=== PATIENT | female | born 1935 | race African-American/Black ===

== ENCOUNTER 2017-07-02 19:31 | Inpatient (IN) ==
[2017-07-02] MEDS ORDERED: MORPHINE 2 MG/1 ML SYRINGE IV STA (20:48)
[2017-07-02] MEDS ORDERED: cefTRIAXone 1,000 MG in SODIUM CHLORIDE 0.9% 100 ML IV STA (20:48)
[2017-07-02] MEDS ORDERED: ONDANSETRON 4 MG/2 ML VIAL IV STA (20:48)
[2017-07-02] MEDS ORDERED: FUROSEMIDE 100 MG/10 ML VIAL IV STA (20:55)
[2017-07-02] MEDS ORDERED: methylPREDNISolone SOD SUC 125 MG/2 ML VIAL IV STA (20:55)
[2017-07-02] MEDS ORDERED: ALBUTEROL 2.5 MG/3 ML NEB RESP TX SCH (21:00)
[2017-07-02 21:03] LABS: Basophils % 0.2 % (0.0-0.8); Hematocrit 45.6 VOL% (35.7-47.0); Hemoglobin 15.4 GM/DL (12.0-16.0); Immature Granulocytes % 0.5 %; Immature Granulocytes Absolute 0.09 #; Lymphocytes # 0.7 10*3/uL (1.4-4.0); Lymphocytes % 4.1 % (21.3-54.2); Mean Corpuscular HGB Conc 33.8 GM/DL (32-36); Mean Corpuscular Hemoglobin 32 PG (27-34); Mean Corpuscular Volume 94.2 FL (87-102); Monocytes % 5.5 % (1.7-12.7); NRBC # 0.11 10*3/uL; Neutrophils % 89.7 % (38.7-73.9); Platelet Count 337 T/CUMM (130-400); Red Blood Count 4.84 MC/CUMM (3.8-5.5); Red Cell Distribution Width 15.3 % (9.3-17.3); White Blood Count 17.8 T/CUMM (4-12)
[2017-07-02 21:10] LABS: INR 1.5; PT Patient Result 15.3 SECS
[2017-07-02 21:17] LABS: Albumin 3.3 G/DL (3.4-5.0); Bilirubin,Total 4.4 MG/DL (0.2-1.0); Calcium 9.6 MG/DL (8.5-10.1); Magnesium 2.3 MG/DL (1.8-2.4); Osmolality,Calculated 293.1 MOS/KG (273-304); Potassium 4.1 MMOL/L (3.5-5.1); Troponin I Only 0.358 NG/ML (0.00-0.045)
[2017-07-02] MEDS ORDERED: cefTRIAXone 1,000 MG VIAL ONE (21:22)
[2017-07-02] MEDS ORDERED: FUROSEMIDE 20 MG/2 ML VIAL ONE (21:22)
[2017-07-02] MEDS ORDERED: ONDANSETRON 4 MG/2 ML VIAL ONE (21:22)
[2017-07-02] MEDS ORDERED: FUROSEMIDE 40 MG/4 ML VIAL ONE (21:22)
[2017-07-02] MEDS ORDERED: MORPHINE 2 MG/1 ML SYRINGE ONE (21:22)
[2017-07-02] MEDS ORDERED: methylPREDNISolone SOD SUC 125 MG/2 ML VIAL ONE (21:23)
[2017-07-02 21:39] LABS: Lymphocytes 4 % (20-55); Nucleated Red Blood Cells 1 (0-5); Platelet Estimate Normal; Segmented Neutrophils 93 % (50-85); Total Cells Counted 100
[2017-07-02 22:01] LABS: Apearance,Urine Slightly Hazy (Clear); Bacteria,Urine Occasional /HPF (Few); Bilirubin,Urine Negative (Negative); Blood, Urine Small mg/dL (Negative); Glucose,Urine (UA) Negative (Negative); Hyaline Casts,Urine 27 /LPF (0-3); Ketones,Urine Negative (Negative); Mucus,Urine Occasional /LPF (Occasional); Nitrite,Urine Negative (Negative); Protein,Urine 100 MG/DL; RBC,Urine 3 /HPF (0-4); Squamous Epithelial Cell,Urine Occasional /HPF (0-10); Urine Color Amber (Yellow); Urine Specific Gravity 1.014 (1.001-1.035); WBC,Urine 37 /HPF (0-6)
[2017-07-02] MEDS ORDERED: ENOXAPARIN 100 MG/ML SYRINGE SUBCUT STA (22:10)
[2017-07-02] MEDS ORDERED: ALBUTEROL 2.5 MG/3 ML NEB RESP TX PRN (23:07)
[2017-07-02] MEDS ORDERED: DEXTROSE 50% 25 GM/50 ML VIAL IV PRN (23:21)
[2017-07-02] MEDS ORDERED: GLUCAGON 1 MG VIAL IM PRN (23:21)
[2017-07-02] MEDS ORDERED: ACETAMINOPHEN 325 MG TABLET PO PRN (23:21)
[2017-07-02] MEDS ORDERED: ONDANSETRON 4 MG/2 ML VIAL IV PRN (23:21)
[2017-07-02] MEDS ORDERED: hydrALAZINE 20 MG/1 ML VIAL IV PRN (23:26)
[2017-07-02] MEDS ORDERED: AZITHROMYCIN INJ 500 MG in SODIUM CHLORIDE 0.9% 250 ML IV SCH (23:30)
[2017-07-02] MEDS ORDERED: cefTRIAXone 1,000 MG in SODIUM CHLORIDE 0.9% 100 ML IV SCH (23:30)
[2017-07-03] MEDS: ALBUTEROL/IPRATROPIUM 3 ML NEB RESP TX SCH ×4 (00:48→19:06)
[2017-07-03] MEDS: methylPREDNISolone SOD SUC 40 MG/1 ML VIAL IV SCH ×4 (00:49→23:45)
[2017-07-03] MEDS: LEVOFLOXACIN INJ 750 MG in PREMIX 1 EACH IV SCH (00:51)
[2017-07-03] MEDS: POTASSIUM CHLORIDE 20 MEQ TABLET PO SCH ×3 (00:52→20:51)
[2017-07-03] MEDS: ATORVASTATIN 40 MG TABLET PO SCH ×2 (00:52→20:51)
[2017-07-03] MEDS: SODIUM CHLORIDE 0.9% 1,000 ML IV SCH ×2 (00:52→23:47)
[2017-07-03] MEDS: DILTIAZEM INJ 100 MG in SODIUM CHLORIDE 0.9% 100 ML IV SCH ×2 (00:56→23:47)
[2017-07-03 05:22] LABS: Hematocrit 39.3 VOL% (35.7-47.0); Hemoglobin 13.5 GM/DL (12.0-16.0); Immature Granulocytes % 0.8 %; Lymphocytes # 0.3 10*3/uL (1.4-4.0); Lymphocytes % 2.9 % (21.3-54.2); Mean Corpuscular HGB Conc 34.4 GM/DL (32-36); Mean Corpuscular Hemoglobin 32 PG (27-34); Mean Corpuscular Volume 92.3 FL (87-102); Mean Platelet Volume 11.2 FL (9.6-12.0); Monocytes # 0.2 10*3/uL (0.11-0.8); Monocytes % 1.7 % (1.7-12.7); Neutrophils # 11.3 10*3/uL (1.4-7.4); Neutrophils % 94.6 % (38.7-73.9); Platelet Count 272 T/CUMM (130-400); Red Blood Count 4.26 MC/CUMM (3.8-5.5); Red Cell Distribution Width 15.2 % (9.3-17.3); White Blood Count 11.9 T/CUMM (4-12)
[2017-07-03 05:47] LABS: Albumin 2.6 G/DL (3.4-5.0); Bilirubin,Total 3.1 MG/DL (0.2-1.0); Calcium 9.2 MG/DL (8.5-10.1); Osmolality,Calculated 300.1 MOS/KG (273-304); Potassium 4.5 MMOL/L (3.5-5.1); Total Protein 5.8 G/DL (6.4-8.3)
[2017-07-03 05:59] LABS: Risk Ratio 7.93; Thyroid Stimulating Hormone 0.029 uIU/ml (0.358-3.74); VLDL CHOLESTEROL 16.8 MG/DL
[2017-07-03] MEDS: LEVOTHYROXINE 150 MCG TABLET PO SCH (06:10)
[2017-07-03] MEDS ORDERED: FUROSEMIDE 20 MG/2 ML VIAL IV SCH (08:00)
[2017-07-03] MEDS ORDERED: FUROSEMIDE 20 MG/2 ML VIAL IM SCH (08:00)
[2017-07-03 08:01] LABS: Hypochromasia 1+; Lymphocytes 3 % (20-55); Microcytosis Slight; Segmented Neutrophils 95 % (50-85); Total Cells Counted 100
[2017-07-03 08:02] LABS: Platelet Estimate Normal; Polychromasia Slight
[2017-07-03 08:42] LABS: Hepatitis A Ab IgM Quant 0.14 Index; Hepatitis A Ab IgM Result Negative (Negative); Hepatitis B Core IgM Result Negative (Negative); Hepatitis B Surface Ag Quant < 0.10 Index; Hepatitis B Surface Ag Result Negative (Negative); Hepatitis C Virus Ab Quant 0.02 Index; Hepatitis C Virus Ab Result Negative (Negative)
[2017-07-03] MEDS: RIVAROXABAN 15 MG TABLET PO SCH (08:56)
[2017-07-03] MEDS: PANTOPRAZOLE 40 MG TABLET PO SCH (08:56)
[2017-07-03] MEDS: DIGOXIN 0.125 MG TABLET PO SCH (08:56)
[2017-07-03] MEDS: INSULIN LISPRO 100 UNIT/ML SUBCUT SCH ×4 (08:57→20:51)
[2017-07-03] MEDS ORDERED: METOPROLOL SUCCINATE XL 50 MG TABLET PO SCH (09:00)
[2017-07-03] MEDS ORDERED: LOSARTAN 50 MG TABLET PO SCH (09:00)
[2017-07-03] MEDS: FUROSEMIDE 20 MG/2 ML VIAL IV SCH ×2 (09:05→15:48)
[2017-07-03] MEDS: BUDESONIDE/FORMOTEROL 160-4.5 INHALER 6 GM INH SCH (09:09)
[2017-07-03] MEDS ORDERED: DILTIAZEM CD 180 MG CAPSULE PO SCH (11:30)
[2017-07-03] MEDS ORDERED: metOLazone 5 MG TABLET PO SCH (16:00)
[2017-07-03] MEDS: FUROSEMIDE 40 MG/4 ML VIAL IV SCH (16:00)
[2017-07-03] MEDS: CARVEDILOL 25 MG TABLET PO SCH (20:51)
[2017-07-03] MEDS: MAGNESIUM OXIDE 400 MG TABLET PO SCH (20:51)
[2017-07-04 04:31] LABS: Basophils % 0.1 % (0.0-0.8); Hematocrit 36.3 VOL% (35.7-47.0); Hemoglobin 12.6 GM/DL (12.0-16.0); Immature Granulocytes % 0.7 %; Immature Granulocytes Absolute 0.11 #; Lymphocytes # 0.6 10*3/uL (1.4-4.0); Lymphocytes % 3.9 % (21.3-54.2); Mean Corpuscular HGB Conc 34.7 GM/DL (32-36); Mean Corpuscular Hemoglobin 32 PG (27-34); Mean Corpuscular Volume 91.2 FL (87-102); Mean Platelet Volume 11.1 FL (9.6-12.0); Monocytes # 0.5 10*3/uL (0.11-0.8); Monocytes % 3.4 % (1.7-12.7); NRBC # 0.14 10*3/uL; Neutrophils # 13.7 10*3/uL (1.4-7.4); Neutrophils % 91.9 % (38.7-73.9); Platelet Count 246 T/CUMM (130-400); Red Blood Count 3.98 MC/CUMM (3.8-5.5); Red Cell Distribution Width 14.9 % (9.3-17.3)
[2017-07-04 05:19] LABS: Osmolality,Calculated 287.2 MOS/KG (273-304); Potassium 3.9 MMOL/L (3.5-5.1)
[2017-07-04] MEDS: LEVOTHYROXINE 150 MCG TABLET PO SCH (05:37)
[2017-07-04 07:40] LABS: Hypochromasia 1+; Lymphocytes 8 % (20-55); Platelet Estimate Adequate; Segmented Neutrophils 86 % (50-85); Total Cells Counted 100
[2017-07-04] MEDS: ALBUTEROL/IPRATROPIUM 3 ML NEB RESP TX SCH ×4 (08:02→20:02)
[2017-07-04] MEDS: BUDESONIDE/FORMOTEROL 160-4.5 INHALER 6 GM INH SCH (10:08)
[2017-07-04] MEDS: MAGNESIUM OXIDE 400 MG TABLET PO SCH ×2 (10:09→20:07)
[2017-07-04] MEDS: DIGOXIN 0.125 MG TABLET PO SCH (10:09)
[2017-07-04] MEDS: methylPREDNISolone SOD SUC 40 MG/1 ML VIAL IV SCH ×3 (10:10→22:58)
[2017-07-04] MEDS: FUROSEMIDE 40 MG/4 ML VIAL IV SCH (10:10)
[2017-07-04] MEDS: CARVEDILOL 25 MG TABLET PO SCH ×2 (10:10→20:07)
[2017-07-04] MEDS: PANTOPRAZOLE 40 MG TABLET PO SCH (10:10)
[2017-07-04] MEDS: RIVAROXABAN 15 MG TABLET PO SCH (10:10)
[2017-07-04] MEDS: POTASSIUM CHLORIDE 20 MEQ TABLET PO SCH ×2 (10:10→20:07)
[2017-07-04] MEDS: INSULIN LISPRO 100 UNIT/ML SUBCUT SCH ×4 (10:11→20:07)
[2017-07-04 11:45] LABS: Hepatitis A Ab IgM Quant 0.14 Index; Hepatitis A Ab IgM Result Negative (Negative); Hepatitis B Surface Ag Quant < 0.10 Index
[2017-07-04 11:46] LABS: Hepatitis B Core IgM Quant 0.09 Index; Hepatitis B Core IgM Result Negative (Negative); Hepatitis B Surface Ag Result Negative (Negative); Hepatitis C Virus Ab Quant 0.03 Index; Hepatitis C Virus Ab Result Negative (Negative)
[2017-07-04] MEDS: FUROSEMIDE 40 MG TABLET PO SCH (16:19)
[2017-07-04] MEDS: ATORVASTATIN 40 MG TABLET PO SCH (20:07)
[2017-07-04] MEDS: LEVOFLOXACIN INJ 750 MG in PREMIX 1 EACH IV SCH (22:59)
[2017-07-05] MEDS: ALBUTEROL/IPRATROPIUM 3 ML NEB RESP TX SCH ×4 (00:41→20:18)
[2017-07-05] MEDS: SODIUM CHLORIDE 0.9% 1,000 ML IV SCH (04:00)
[2017-07-05] MEDS: LEVOTHYROXINE 75 MCG TABLET PO SCH (05:46)
[2017-07-05 05:51] LABS: Osmolality,Calculated 290.7 MOS/KG (273-304)
[2017-07-05 06:09] LABS: Basophils % 0.1 % (0.0-0.8); Hematocrit 38.3 VOL% (35.7-47.0); Hemoglobin 13.6 GM/DL (12.0-16.0); Immature Granulocytes % 0.8 %; Immature Granulocytes Absolute 0.12 #; Lymphocytes # 0.5 10*3/uL (1.4-4.0); Lymphocytes % 3.1 % (21.3-54.2); Mean Corpuscular HGB Conc 35.5 GM/DL (32-36); Mean Corpuscular Hemoglobin 32 PG (27-34); Mean Corpuscular Volume 89.1 FL (87-102); Mean Platelet Volume 11.2 FL (9.6-12.0); Monocytes # 0.4 10*3/uL (0.11-0.8); Monocytes % 2.6 % (1.7-12.7); NRBC # 0.06 10*3/uL; Neutrophils # 14.7 10*3/uL (1.4-7.4); Neutrophils % 93.4 % (38.7-73.9); Platelet Count 279 T/CUMM (130-400); Red Cell Distribution Width 14.7 % (9.3-17.3); White Blood Count 15.7 T/CUMM (4-12)
[2017-07-05 08:07] LABS: Band Neutrophils 2 % (0-10); Lymphocytes 2 % (20-55); Macrocytosis 1+; Segmented Neutrophils 93 % (50-85); Total Cells Counted 100
[2017-07-05 08:08] LABS: Hypochromasia 2+; Platelet Estimate Adequate; Target Cells Slight
[2017-07-05] MEDS: methylPREDNISolone SOD SUC 40 MG/1 ML VIAL IV SCH ×3 (09:01→23:59)
[2017-07-05] MEDS: FUROSEMIDE 40 MG TABLET PO SCH ×2 (09:01→15:08)
[2017-07-05] MEDS: INSULIN LISPRO 100 UNIT/ML SUBCUT SCH ×4 (09:01→21:58)
[2017-07-05] MEDS: CARVEDILOL 25 MG TABLET PO SCH ×2 (09:01→21:25)
[2017-07-05] MEDS: MAGNESIUM OXIDE 400 MG TABLET PO SCH ×2 (09:02→21:26)
[2017-07-05] MEDS: RIVAROXABAN 15 MG TABLET PO SCH (09:02)
[2017-07-05] MEDS: PANTOPRAZOLE 40 MG TABLET PO SCH (09:02)
[2017-07-05] MEDS: BUDESONIDE/FORMOTEROL 160-4.5 INHALER 6 GM INH SCH (09:02)
[2017-07-05] MEDS: POTASSIUM CHLORIDE 20 MEQ TABLET PO SCH ×2 (09:02→21:26)
[2017-07-05] MEDS: DIGOXIN 0.125 MG TABLET PO SCH (09:02)
[2017-07-05] MEDS: NYSTATIN 500,000 UNIT/5 ML UDCUP SWISH/SWAL SCH ×2 (17:38→21:33)
[2017-07-05] MEDS: ATORVASTATIN 40 MG TABLET PO SCH (21:26)
[2017-07-06] MEDS: SODIUM CHLORIDE 0.9% 1,000 ML IV SCH ×2 (00:39→08:18)
[2017-07-06] MEDS: ALBUTEROL/IPRATROPIUM 3 ML NEB RESP TX SCH ×4 (00:47→21:09)
[2017-07-06] MEDS ORDERED: DIAZEPAM 5 MG TABLET PO ONE ×2 (06:00→09:00)
[2017-07-06] MEDS ORDERED: diphenhydrAMINE CAP 25 MG CAPSULE PO ONE ×2 (06:00→09:00)
[2017-07-06 06:04] LABS: Basophils % 0.1 % (0.0-0.8); Hematocrit 40.8 VOL% (35.7-47.0); Hemoglobin 14.3 GM/DL (12.0-16.0); Immature Granulocytes Absolute 0.13 #; Lymphocytes # 0.3 10*3/uL (1.4-4.0); Lymphocytes % 2.4 % (21.3-54.2); Mean Corpuscular Hemoglobin 31 PG (27-34); Mean Corpuscular Volume 89.7 FL (87-102); Mean Platelet Volume 10.8 FL (9.6-12.0); Monocytes # 0.4 10*3/uL (0.11-0.8); Monocytes % 3.1 % (1.7-12.7); NRBC # 0.02 10*3/uL; Neutrophils # 12.8 10*3/uL (1.4-7.4); Neutrophils % 93.4 % (38.7-73.9); Platelet Count 298 T/CUMM (130-400); Red Blood Count 4.55 MC/CUMM (3.8-5.5); Red Cell Distribution Width 14.7 % (9.3-17.3); White Blood Count 13.7 T/CUMM (4-12)
[2017-07-06] MEDS: LEVOTHYROXINE 75 MCG TABLET PO SCH ×2 (06:15→08:09)
[2017-07-06 06:37] LABS: Lymphocytes 3 % (20-55); Platelet Estimate Adequate; Segmented Neutrophils 96 % (50-85); Total Cells Counted 100
[2017-07-06 06:38] LABS: Giant Platelets Few; Hypochromasia 1+; Ovalocytes Slight
[2017-07-06 06:39] LABS: Macrocytosis Slight
[2017-07-06 07:00] LABS: Calcium 9.2 MG/DL (8.5-10.1); Osmolality,Calculated 290.4 MOS/KG (273-304); Potassium 3.7 MMOL/L (3.5-5.1)
[2017-07-06 07:06] LABS: Albumin 2.6 G/DL (3.4-5.0); Bilirubin,Direct 0.81 MG/DL (0.0-0.20); Bilirubin,Indirect 1.3 MG/DL (0.0-1.0); Bilirubin,Total 2.1 MG/DL (0.2-1.0); Total Protein 5.3 G/DL (6.4-8.3)
[2017-07-06] MEDS ORDERED: diphenhydrAMINE CAP 50 MG CAPSULE ONE (07:37)
[2017-07-06] MEDS ORDERED: DIAZEPAM 5 MG TABLET ONE (07:37)
[2017-07-06] MEDS: methylPREDNISolone SOD SUC 40 MG/1 ML VIAL IV SCH ×3 (08:08→23:30)
[2017-07-06] MEDS: CARVEDILOL 25 MG TABLET PO SCH ×2 (08:09→21:02)
[2017-07-06] MEDS: DIGOXIN 0.125 MG TABLET PO SCH (08:09)
[2017-07-06] MEDS: BUDESONIDE/FORMOTEROL 160-4.5 INHALER 6 GM INH SCH (08:17)
[2017-07-06] MEDS: INSULIN LISPRO 100 UNIT/ML SUBCUT SCH ×4 (08:23→21:47)
[2017-07-06] MEDS ORDERED: HEPARIN/NACL 0.9% 2 UNITS/ML 2,000 ML IV ONE (09:53)
[2017-07-06] MEDS ORDERED: LIDOCAINE 1% 20 ML VIAL ONE (09:53)
[2017-07-06] MEDS ORDERED: fentaNYL 100 MCG/2 ML VIAL ONE (10:05)
[2017-07-06] MEDS ORDERED: MIDAZOLAM 2 MG/2 ML VIAL ONE (10:05)
[2017-07-06] MEDS: FUROSEMIDE 40 MG TABLET PO SCH ×2 (15:39)
[2017-07-06] MEDS: NYSTATIN 500,000 UNIT/5 ML UDCUP SWISH/SWAL SCH ×3 (15:40→21:47)
[2017-07-06] MEDS: POTASSIUM CHLORIDE 20 MEQ TABLET PO SCH ×2 (15:40→21:02)
[2017-07-06] MEDS: RIVAROXABAN 15 MG TABLET PO SCH (15:41)
[2017-07-06] MEDS: PANTOPRAZOLE 40 MG TABLET PO SCH (15:41)
[2017-07-06] MEDS: MAGNESIUM OXIDE 400 MG TABLET PO SCH ×2 (15:41→21:02)
[2017-07-06] MEDS: ATORVASTATIN 40 MG TABLET PO SCH (21:02)
[2017-07-07] MEDS: LEVOFLOXACIN INJ 750 MG in PREMIX 1 EACH IV SCH (00:43)
[2017-07-07] MEDS: ALBUTEROL/IPRATROPIUM 3 ML NEB RESP TX SCH ×3 (02:26→14:14)
[2017-07-07 04:43] LABS: Basophils % 0.1 % (0.0-0.8); Hematocrit 40.4 VOL% (35.7-47.0); Hemoglobin 13.7 GM/DL (12.0-16.0); Immature Granulocytes % 0.8 %; Lymphocytes # 0.2 10*3/uL (1.4-4.0); Lymphocytes % 1.5 % (21.3-54.2); Mean Corpuscular HGB Conc 33.9 GM/DL (32-36); Mean Corpuscular Hemoglobin 31 PG (27-34); Mean Corpuscular Volume 91.4 FL (87-102); Mean Platelet Volume 10.8 FL (9.6-12.0); Monocytes # 0.6 10*3/uL (0.11-0.8); Monocytes % 4.6 % (1.7-12.7); NRBC # 0.02 10*3/uL; Neutrophils # 11.4 10*3/uL (1.4-7.4); Platelet Count 259 T/CUMM (130-400); Red Blood Count 4.42 MC/CUMM (3.8-5.5); Red Cell Distribution Width 14.9 % (9.3-17.3); White Blood Count 12.3 T/CUMM (4-12)
[2017-07-07 05:16] LABS: Calcium 8.7 MG/DL (8.5-10.1); Potassium 3.7 MMOL/L (3.5-5.1)
[2017-07-07 05:20] LABS: Giant Platelets Few; Hypochromasia 1+; Lymphocytes 1 % (20-55); Macrocytosis Slight; Ovalocytes Slight; Platelet Estimate Adequate; Segmented Neutrophils 94 % (50-85); Total Cells Counted 100
[2017-07-07] MEDS: MAGNESIUM OXIDE 400 MG TABLET PO SCH (09:36)
[2017-07-07] MEDS: NYSTATIN 500,000 UNIT/5 ML UDCUP SWISH/SWAL SCH ×2 (09:36→13:48)
[2017-07-07] MEDS: POTASSIUM CHLORIDE 20 MEQ TABLET PO SCH (09:37)
[2017-07-07] MEDS: DIGOXIN 0.125 MG TABLET PO SCH (09:37)
[2017-07-07] MEDS: RIVAROXABAN 15 MG TABLET PO SCH (09:37)
[2017-07-07] MEDS: CARVEDILOL 25 MG TABLET PO SCH (09:37)
[2017-07-07] MEDS: INSULIN LISPRO 100 UNIT/ML SUBCUT SCH ×2 (09:38→13:04)
[2017-07-07] MEDS: FUROSEMIDE 40 MG TABLET PO SCH (09:38)
[2017-07-07] MEDS: PANTOPRAZOLE 40 MG TABLET PO SCH (09:38)
[2017-07-07] MEDS: methylPREDNISolone SOD SUC 40 MG/1 ML VIAL IV SCH (09:39)
[2017-07-07] MEDS: LEVOTHYROXINE 75 MCG TABLET PO SCH (09:39)
[2017-07-07] MEDS: BUDESONIDE/FORMOTEROL 160-4.5 INHALER 6 GM INH SCH (11:08)
[2017-07-07 13:00] VITALS: BP 108/57
[2017-07-07 14:06] LABS: Mitochondrial Antibody (M2) <0.1 U
== END 2017-07-07 17:17 | disposition home or self-care (01) | DRG 190 ==
LOC: N.ED 19:31 → N.EDINP 22:53 → N.TELEN 23:23
PROVIDERS: ADMIT Internal Medicine; ATTEND Internal Medicine
PROC: CLCCHCL (ICD-10-PCS; 2017-07-06 10:15)

== ENCOUNTER 2017-07-14 18:55 | Inpatient (IN) ==
[2017-07-14 20:24] LABS: VBG Base Excess 7.9 MEQ/L (0-4); VBG HCO3 34.2 MEQ/L (24-28); VBG PCO2 54.3 MMHG (41-51); VBG PH 7.417; VBG PO2 141.5 MMHG (17-40)
[2017-07-14 20:27] LABS: Basophils % 0.2 % (0.0-0.8); Eosinophils # 0.2 10*3/uL (0.0-0.87); Eosinophils % 1.7 % (0.00-10.9); Hematocrit 39.2 VOL% (35.7-47.0); Hemoglobin 12.9 GM/DL (12.0-16.0); Immature Granulocytes % 0.6 %; Immature Granulocytes Absolute 0.06 #; Lymphocytes # 0.7 10*3/uL (1.4-4.0); Lymphocytes % 6.5 % (21.3-54.2); Mean Corpuscular HGB Conc 32.9 GM/DL (32-36); Mean Corpuscular Hemoglobin 32 PG (27-34); Mean Corpuscular Volume 96.6 FL (87-102); Mean Platelet Volume 11.5 FL (9.6-12.0); Monocytes % 9.4 % (1.7-12.7); Neutrophils # 8.7 10*3/uL (1.4-7.4); Neutrophils % 81.6 % (38.7-73.9); Platelet Count 187 T/CUMM (130-400); Red Blood Count 4.06 MC/CUMM (3.8-5.5); Red Cell Distribution Width 14.6 % (9.3-17.3); White Blood Count 10.7 T/CUMM (4-12)
[2017-07-14 20:32] LABS: INR 1.4; PT Patient Result 14.8 SECS; Partial Thromboplastin Time 33.8 SECS (0-40)
[2017-07-14 20:35] LABS: Albumin 2.5 G/DL (3.4-5.0); Bilirubin,Total 1.6 MG/DL (0.2-1.0); Calcium 7.9 MG/DL (8.5-10.1); Magnesium 1.5 MG/DL (1.8-2.4); Osmolality,Calculated 276.4 MOS/KG (273-304); Potassium 2.7 MMOL/L (3.5-5.1); Total Protein 6.3 G/DL (6.4-8.3); Troponin I Only 0.139 NG/ML (0.00-0.045)
[2017-07-14] MEDS ORDERED: ALBUTEROL/IPRATROPIUM 3 ML NEB RESP TX STA (21:56)
[2017-07-14] MEDS ORDERED: methylPREDNISolone SOD SUC 125 MG/2 ML VIAL IV STA (21:56)
[2017-07-14] MEDS ORDERED: methylPREDNISolone SOD SUC 125 MG/2 ML VIAL ONE (22:56)
[2017-07-15] MEDS ORDERED: ALBUTEROL/IPRATROPIUM 3 ML NEB RESP TX PRN (00:36)
[2017-07-15] MEDS ORDERED: POTASSIUM CHLORIDE RIDER 20 MEQ in PREMIX 1 EACH IV PRN (00:43)
[2017-07-15] MEDS ORDERED: MAGNESIUM SULF RIDER 2 GM in PREMIX 1 EACH IV ONE (00:44)
[2017-07-15] MEDS ORDERED: ACETAMINOPHEN 325 MG TABLET PO PRN (00:45)
[2017-07-15] MEDS ORDERED: GLUCAGON 1 MG VIAL IM PRN (00:45)
[2017-07-15] MEDS ORDERED: ONDANSETRON 4 MG/2 ML VIAL IV PRN (00:45)
[2017-07-15] MEDS ORDERED: DEXTROSE 50% 25 GM/50 ML VIAL IV PRN (00:45)
[2017-07-15] MEDS: ATORVASTATIN 40 MG TABLET PO SCH ×2 (03:26→20:39)
[2017-07-15] MEDS ORDERED: LEVOFLOXACIN INJ 100 ML IV ONE (03:28)
[2017-07-15] MEDS ORDERED: methylPREDNISolone SOD SUC 40 MG/1 ML VIAL ONE ×3 (03:28→14:21)
[2017-07-15] MEDS ORDERED: MAGNESIUM SULF RIDER 50 ML IV ONE (03:28)
[2017-07-15] MEDS: ALBUTEROL/IPRATROPIUM 3 ML NEB RESP TX SCH ×4 (03:30→19:26)
[2017-07-15] MEDS: methylPREDNISolone SOD SUC 40 MG/1 ML VIAL IV SCH ×5 (04:00→18:05)
[2017-07-15 05:33] LABS: Albumin 2.4 G/DL (3.4-5.0); Bilirubin,Total 1.5 MG/DL (0.2-1.0); Calcium 8.1 MG/DL (8.5-10.1); Osmolality,Calculated 284.1 MOS/KG (273-304); Potassium 3.2 MMOL/L (3.5-5.1); Total Protein 5.9 G/DL (6.4-8.3)
[2017-07-15 05:40] LABS: Basophils % 0.1 % (0.0-0.8); Hematocrit 38.9 VOL% (35.7-47.0); Hemoglobin 12.8 GM/DL (12.0-16.0); Immature Granulocytes % 0.5 %; Immature Granulocytes Absolute 0.04 #; Lymphocytes # 0.3 10*3/uL (1.4-4.0); Lymphocytes % 4.5 % (21.3-54.2); Mean Corpuscular HGB Conc 32.9 GM/DL (32-36); Mean Corpuscular Hemoglobin 32 PG (27-34); Mean Platelet Volume 11.7 FL (9.6-12.0); Monocytes # 0.1 10*3/uL (0.11-0.8); Monocytes % 1.7 % (1.7-12.7); Neutrophils # 7.1 10*3/uL (1.4-7.4); Neutrophils % 93.2 % (38.7-73.9); Platelet Count 181 T/CUMM (130-400); Red Blood Count 4.05 MC/CUMM (3.8-5.5); Red Cell Distribution Width 14.6 % (9.3-17.3); White Blood Count 7.6 T/CUMM (4-12)
[2017-07-15 06:02] LABS: Lymphocytes 2 % (20-55); Platelet Estimate Normal; Segmented Neutrophils 96 % (50-85); Total Cells Counted 100
[2017-07-15 06:03] LABS: Giant Platelets Few; Hypochromasia 1+; Microcytosis Slight
[2017-07-15] MEDS: LEVOFLOXACIN INJ 500 MG in PREMIX 1 EACH IV SCH (06:05)
[2017-07-15] MEDS: CARVEDILOL 25 MG TABLET PO SCH ×3 (06:08→20:39)
[2017-07-15] MEDS ORDERED: FUROSEMIDE 40 MG/4 ML VIAL ONE (07:54)
[2017-07-15] MEDS: FUROSEMIDE 40 MG/4 ML VIAL IV SCH ×2 (08:03→17:46)
[2017-07-15] MEDS ORDERED: INSULIN LISPRO 100 UNIT/ML SUBCUT ONE (10:40)
[2017-07-15] MEDS: INSULIN LISPRO 100 UNIT/ML SUBCUT SCH ×4 (10:42→20:39)
[2017-07-15] MEDS ORDERED: DIGOXIN 0.125 MG TABLET ONE (11:16)
[2017-07-15] MEDS: DIGOXIN 0.125 MG TABLET PO SCH (11:21)
[2017-07-15] MEDS ORDERED: PANTOPRAZOLE 40 MG TABLET PO ONE (13:54)
[2017-07-15] MEDS: PANTOPRAZOLE 40 MG TABLET PO SCH (14:18)
[2017-07-15] MEDS: BUDESONIDE/FORMOTEROL 160-4.5 INHALER 6 GM INH SCH (16:07)
[2017-07-15] MEDS: LEVOTHYROXINE 75 MCG TABLET PO SCH (16:07)
[2017-07-15] MEDS ORDERED: INFLUENZA VIRUS VACCINE 0.5 ML SYRINGE IM ONE (16:08)
[2017-07-16] MEDS: methylPREDNISolone SOD SUC 40 MG/1 ML VIAL IV SCH ×4 (01:50→19:02)
[2017-07-16] MEDS: LEVOFLOXACIN INJ 500 MG in PREMIX 1 EACH IV SCH (01:51)
[2017-07-16] MEDS: LEVOTHYROXINE 75 MCG TABLET PO SCH (06:15)
[2017-07-16] MEDS: ALBUTEROL/IPRATROPIUM 3 ML NEB RESP TX SCH ×4 (06:28→19:26)
[2017-07-16] MEDS: FUROSEMIDE 40 MG/4 ML VIAL IV SCH ×2 (09:18→16:06)
[2017-07-16] MEDS: INSULIN LISPRO 100 UNIT/ML SUBCUT SCH ×4 (09:18→22:11)
[2017-07-16] MEDS: INSULIN ASPART PROTAMINE/ASPART 70/30 100 UNIT/ML SUBCUT SCH ×2 (09:19→22:11)
[2017-07-16] MEDS: DIGOXIN 0.125 MG TABLET PO SCH (09:19)
[2017-07-16] MEDS: CARVEDILOL 25 MG TABLET PO SCH ×2 (09:19→22:10)
[2017-07-16] MEDS: PANTOPRAZOLE 40 MG TABLET PO SCH (09:19)
[2017-07-16] MEDS: BUDESONIDE/FORMOTEROL 160-4.5 INHALER 6 GM INH SCH (09:20)
[2017-07-16] MEDS: PIPERACILLIN/TAZOBACTAM 3,375 MG in SODIUM CHLORIDE 0.9% 100 ML IV SCH (17:02)
[2017-07-16] MEDS: ATORVASTATIN 40 MG TABLET PO SCH (22:11)
[2017-07-17] MEDS: methylPREDNISolone SOD SUC 40 MG/1 ML VIAL IV SCH ×4 (01:27→18:08)
[2017-07-17] MEDS: PIPERACILLIN/TAZOBACTAM 3,375 MG in SODIUM CHLORIDE 0.9% 100 ML IV SCH ×3 (01:28→17:25)
[2017-07-17] MEDS: ALBUTEROL/IPRATROPIUM 3 ML NEB RESP TX SCH ×4 (01:30→19:18)
[2017-07-17 04:00] LABS: Calcium 8.6 MG/DL (8.5-10.1); Osmolality,Calculated 284.5 MOS/KG (273-304)
[2017-07-17 04:03] LABS: Basophils % 0.1 % (0.0-0.8); Hematocrit 38.5 VOL% (35.7-47.0); Hemoglobin 12.8 GM/DL (12.0-16.0); Immature Granulocytes % 0.8 %; Immature Granulocytes Absolute 0.11 #; Lymphocytes # 0.6 10*3/uL (1.4-4.0); Lymphocytes % 4.1 % (21.3-54.2); Mean Corpuscular HGB Conc 33.2 GM/DL (32-36); Mean Corpuscular Hemoglobin 32 PG (27-34); Mean Corpuscular Volume 95.8 FL (87-102); Mean Platelet Volume 11.1 FL (9.6-12.0); Monocytes # 0.4 10*3/uL (0.11-0.8); Monocytes % 2.6 % (1.7-12.7); Neutrophils # 13.3 10*3/uL (1.4-7.4); Neutrophils % 92.4 % (38.7-73.9); Platelet Count 174 T/CUMM (130-400); Red Blood Count 4.02 MC/CUMM (3.8-5.5); Red Cell Distribution Width 13.9 % (9.3-17.3); White Blood Count 14.3 T/CUMM (4-12)
[2017-07-17 05:11] LABS: Giant Platelets Few; Hypochromasia 1+; Lymphocytes 4 % (20-55); Microcytosis Slight; Ovalocytes Slight; Platelet Estimate Normal; Segmented Neutrophils 94 % (50-85); Total Cells Counted 100
[2017-07-17] MEDS: LEVOTHYROXINE 75 MCG TABLET PO SCH (05:47)
[2017-07-17] MEDS: POTASSIUM CHLORIDE 20 MEQ TABLET PO PRN (06:26)
[2017-07-17] MEDS: CARVEDILOL 25 MG TABLET PO SCH ×2 (08:58→21:07)
[2017-07-17] MEDS: INSULIN ASPART PROTAMINE/ASPART 70/30 100 UNIT/ML SUBCUT SCH ×2 (08:58→21:08)
[2017-07-17] MEDS: INSULIN LISPRO 100 UNIT/ML SUBCUT SCH ×4 (08:58→20:35)
[2017-07-17] MEDS: BUDESONIDE/FORMOTEROL 160-4.5 INHALER 6 GM INH SCH (08:58)
[2017-07-17] MEDS: PANTOPRAZOLE 40 MG TABLET PO SCH (08:58)
[2017-07-17] MEDS: FUROSEMIDE 40 MG TABLET PO SCH ×2 (08:58→17:25)
[2017-07-17] MEDS: RIVAROXABAN 15 MG TABLET PO SCH (08:58)
[2017-07-17] MEDS: DIGOXIN 0.125 MG TABLET PO SCH (08:59)
[2017-07-17] MEDS ORDERED: POTASSIUM CHLORIDE INJ 30 MEQ in SODIUM CHLORIDE 0.9% 500 ML IV ONE (16:30)
[2017-07-17] MEDS: ATORVASTATIN 40 MG TABLET PO SCH (21:07)
[2017-07-18] MEDS: ALBUTEROL/IPRATROPIUM 3 ML NEB RESP TX SCH ×4 (00:40→21:14)
[2017-07-18] MEDS: PIPERACILLIN/TAZOBACTAM 3,375 MG in SODIUM CHLORIDE 0.9% 100 ML IV SCH ×3 (02:12→16:40)
[2017-07-18] MEDS: methylPREDNISolone SOD SUC 40 MG/1 ML VIAL IV SCH ×4 (02:17→20:23)
[2017-07-18 03:03] LABS: Basophils % 0.1 % (0.0-0.8); Hematocrit 38.3 VOL% (35.7-47.0); Hemoglobin 12.8 GM/DL (12.0-16.0); Immature Granulocytes % 0.7 %; Immature Granulocytes Absolute 0.11 #; Lymphocytes # 0.7 10*3/uL (1.4-4.0); Lymphocytes % 3.9 % (21.3-54.2); Mean Corpuscular HGB Conc 33.4 GM/DL (32-36); Mean Corpuscular Hemoglobin 32 PG (27-34); Mean Platelet Volume 11.4 FL (9.6-12.0); Monocytes # 0.4 10*3/uL (0.11-0.8); Monocytes % 2.3 % (1.7-12.7); Neutrophils # 15.6 10*3/uL (1.4-7.4); Platelet Count 171 T/CUMM (130-400); Red Blood Count 3.99 MC/CUMM (3.8-5.5); Red Cell Distribution Width 14.3 % (9.3-17.3); White Blood Count 16.7 T/CUMM (4-12)
[2017-07-18 03:59] LABS: Osmolality,Calculated 289.8 MOS/KG (273-304); Potassium 3.1 MMOL/L (3.5-5.1)
[2017-07-18 04:21] LABS: Band Neutrophils 1 % (0-10); Lymphocytes 3 % (20-55); Segmented Neutrophils 95 % (50-85); Total Cells Counted 100
[2017-07-18 04:22] LABS: Anisocytosis 1+; Platelet Estimate Normal
[2017-07-18] MEDS: POTASSIUM CHLORIDE 20 MEQ TABLET PO PRN (04:57)
[2017-07-18] MEDS: LEVOTHYROXINE 75 MCG TABLET PO SCH (05:55)
[2017-07-18] MEDS: DIGOXIN 0.125 MG TABLET PO SCH (09:08)
[2017-07-18] MEDS: FUROSEMIDE 40 MG TABLET PO SCH ×2 (09:08→16:40)
[2017-07-18] MEDS: RIVAROXABAN 15 MG TABLET PO SCH (09:08)
[2017-07-18] MEDS: INSULIN ASPART PROTAMINE/ASPART 70/30 100 UNIT/ML SUBCUT SCH ×2 (09:09→20:36)
[2017-07-18] MEDS: CARVEDILOL 25 MG TABLET PO SCH ×2 (09:09→20:36)
[2017-07-18] MEDS: BUDESONIDE/FORMOTEROL 160-4.5 INHALER 6 GM INH SCH (09:09)
[2017-07-18] MEDS: PANTOPRAZOLE 40 MG TABLET PO SCH (09:09)
[2017-07-18] MEDS: INSULIN LISPRO 100 UNIT/ML SUBCUT SCH ×4 (09:09→20:35)
[2017-07-18] MEDS ORDERED: POTASSIUM CHLORIDE INJ 30 MEQ in SODIUM CHLORIDE 0.9% 500 ML IV ONE (11:00)
[2017-07-18] MEDS: ATORVASTATIN 40 MG TABLET PO SCH (20:36)
[2017-07-19] MEDS: methylPREDNISolone SOD SUC 40 MG/1 ML VIAL IV SCH ×4 (01:23→18:17)
[2017-07-19] MEDS: PIPERACILLIN/TAZOBACTAM 3,375 MG in SODIUM CHLORIDE 0.9% 100 ML IV SCH ×3 (01:26→16:21)
[2017-07-19] MEDS: ALBUTEROL/IPRATROPIUM 3 ML NEB RESP TX SCH ×4 (02:47→19:32)
[2017-07-19 05:39] LABS: Basophils % 0.1 % (0.0-0.8); Hematocrit 38.7 VOL% (35.7-47.0); Immature Granulocytes % 0.6 %; Lymphocytes # 0.5 10*3/uL (1.4-4.0); Lymphocytes % 3.1 % (21.3-54.2); Mean Corpuscular HGB Conc 33.6 GM/DL (32-36); Mean Corpuscular Hemoglobin 32 PG (27-34); Mean Corpuscular Volume 96.3 FL (87-102); Mean Platelet Volume 11.4 FL (9.6-12.0); Monocytes # 0.2 10*3/uL (0.11-0.8); Monocytes % 1.5 % (1.7-12.7); Neutrophils # 14.7 10*3/uL (1.4-7.4); Neutrophils % 94.7 % (38.7-73.9); Platelet Count 168 T/CUMM (130-400); Red Blood Count 4.02 MC/CUMM (3.8-5.5); Red Cell Distribution Width 14.4 % (9.3-17.3); White Blood Count 15.5 T/CUMM (4-12)
[2017-07-19 06:05] LABS: Calcium 8.2 MG/DL (8.5-10.1); Magnesium 1.8 MG/DL (1.8-2.4); Potassium 3.3 MMOL/L (3.5-5.1)
[2017-07-19] MEDS: LEVOTHYROXINE 75 MCG TABLET PO SCH (06:30)
[2017-07-19 06:33] LABS: Band Neutrophils 2 % (0-10); Platelet Estimate Normal; Segmented Neutrophils 98 % (50-85); Total Cells Counted 100
[2017-07-19] MEDS: INSULIN LISPRO 100 UNIT/ML SUBCUT SCH ×4 (08:15→21:34)
[2017-07-19] MEDS: PANTOPRAZOLE 40 MG TABLET PO SCH (09:08)
[2017-07-19] MEDS: DIGOXIN 0.125 MG TABLET PO SCH (09:08)
[2017-07-19] MEDS: CARVEDILOL 25 MG TABLET PO SCH ×2 (09:08→21:33)
[2017-07-19] MEDS: BUDESONIDE/FORMOTEROL 160-4.5 INHALER 6 GM INH SCH (09:08)
[2017-07-19] MEDS: RIVAROXABAN 15 MG TABLET PO SCH (09:08)
[2017-07-19] MEDS: FUROSEMIDE 40 MG TABLET PO SCH ×2 (09:08→16:20)
[2017-07-19] MEDS: INSULIN ASPART PROTAMINE/ASPART 70/30 100 UNIT/ML SUBCUT SCH ×2 (09:09→21:33)
[2017-07-19] MEDS: guaiFENesin/CODEINE 5 ML LIQUID PO PRN ×2 (10:21→16:20)
[2017-07-19] MEDS: POTASSIUM CHLORIDE 20 MEQ TABLET PO PRN ×3 (12:17→16:20)
[2017-07-19] MEDS: ATORVASTATIN 40 MG TABLET PO SCH (21:33)
[2017-07-20] MEDS: ALBUTEROL/IPRATROPIUM 3 ML NEB RESP TX SCH ×4 (01:01→20:52)
[2017-07-20] MEDS: PIPERACILLIN/TAZOBACTAM 3,375 MG in SODIUM CHLORIDE 0.9% 100 ML IV SCH ×3 (01:54→17:35)
[2017-07-20] MEDS: methylPREDNISolone SOD SUC 40 MG/1 ML VIAL IV SCH ×4 (01:55→21:04)
[2017-07-20 03:27] LABS: Basophils % 0.1 % (0.0-0.8); Hematocrit 39.8 VOL% (35.7-47.0); Hemoglobin 12.8 GM/DL (12.0-16.0); Immature Granulocytes % 0.8 %; Immature Granulocytes Absolute 0.14 #; Lymphocytes # 0.6 10*3/uL (1.4-4.0); Lymphocytes % 3.2 % (21.3-54.2); Mean Corpuscular HGB Conc 32.2 GM/DL (32-36); Mean Corpuscular Hemoglobin 31 PG (27-34); Mean Corpuscular Volume 97.1 FL (87-102); Mean Platelet Volume 11.3 FL (9.6-12.0); Monocytes # 0.5 10*3/uL (0.11-0.8); Monocytes % 2.6 % (1.7-12.7); Neutrophils # 16.2 10*3/uL (1.4-7.4); Neutrophils % 93.3 % (38.7-73.9); Platelet Count 167 T/CUMM (130-400); Red Cell Distribution Width 14.3 % (9.3-17.3); White Blood Count 17.4 T/CUMM (4-12)
[2017-07-20 03:52] LABS: Calcium 8.6 MG/DL (8.5-10.1); Osmolality,Calculated 290.8 MOS/KG (273-304); Potassium 3.9 MMOL/L (3.5-5.1)
[2017-07-20 04:44] LABS: Lymphocytes 5 % (20-55); Segmented Neutrophils 95 % (50-85); Total Cells Counted 100
[2017-07-20 04:45] LABS: Platelet Estimate Normal
[2017-07-20] MEDS: LEVOTHYROXINE 75 MCG TABLET PO SCH (06:01)
[2017-07-20] MEDS: INSULIN ASPART PROTAMINE/ASPART 70/30 100 UNIT/ML SUBCUT SCH ×2 (09:24→20:54)
[2017-07-20] MEDS: INSULIN LISPRO 100 UNIT/ML SUBCUT SCH ×4 (09:25→20:53)
[2017-07-20] MEDS: FUROSEMIDE 40 MG TABLET PO SCH ×2 (09:25→17:34)
[2017-07-20] MEDS: RIVAROXABAN 15 MG TABLET PO SCH (09:25)
[2017-07-20] MEDS: CARVEDILOL 25 MG TABLET PO SCH ×2 (09:25→20:53)
[2017-07-20] MEDS: DIGOXIN 0.125 MG TABLET PO SCH (09:25)
[2017-07-20] MEDS: PANTOPRAZOLE 40 MG TABLET PO SCH (09:25)
[2017-07-20] MEDS: BUDESONIDE/FORMOTEROL 160-4.5 INHALER 6 GM INH SCH (09:29)
[2017-07-20] MEDS: ATORVASTATIN 40 MG TABLET PO SCH (20:53)
[2017-07-21] MEDS: guaiFENesin/CODEINE 5 ML LIQUID PO PRN (00:33)
[2017-07-21] MEDS: PIPERACILLIN/TAZOBACTAM 3,375 MG in SODIUM CHLORIDE 0.9% 100 ML IV SCH ×3 (00:33→16:19)
[2017-07-21] MEDS: ALBUTEROL/IPRATROPIUM 3 ML NEB RESP TX SCH ×4 (00:45→20:08)
[2017-07-21] MEDS: LEVOTHYROXINE 75 MCG TABLET PO SCH (06:23)
[2017-07-21 06:35] LABS: Calcium 8.2 MG/DL (8.5-10.1); Osmolality,Calculated 290.8 MOS/KG (273-304); Potassium 3.2 MMOL/L (3.5-5.1)
[2017-07-21] MEDS: INSULIN LISPRO 100 UNIT/ML SUBCUT SCH ×4 (08:24→21:17)
[2017-07-21] MEDS: methylPREDNISolone SOD SUC 40 MG/1 ML VIAL IV SCH ×2 (09:49→21:05)
[2017-07-21] MEDS: INSULIN ASPART PROTAMINE/ASPART 70/30 100 UNIT/ML SUBCUT SCH ×2 (09:49→21:18)
[2017-07-21] MEDS: CARVEDILOL 25 MG TABLET PO SCH ×2 (09:50→21:05)
[2017-07-21] MEDS: FUROSEMIDE 40 MG TABLET PO SCH ×2 (09:50→16:19)
[2017-07-21] MEDS: DIGOXIN 0.125 MG TABLET PO SCH (09:50)
[2017-07-21] MEDS: RIVAROXABAN 15 MG TABLET PO SCH (09:51)
[2017-07-21] MEDS: POTASSIUM CHLORIDE 20 MEQ TABLET PO PRN (09:51)
[2017-07-21] MEDS: BUDESONIDE/FORMOTEROL 160-4.5 INHALER 6 GM INH SCH (09:51)
[2017-07-21] MEDS: PANTOPRAZOLE 40 MG TABLET PO SCH (09:51)
[2017-07-21] MEDS ORDERED: POTASSIUM CHLORIDE 20 MEQ/15 ML UDCUP PO ONE (15:51)
[2017-07-21] MEDS: ATORVASTATIN 40 MG TABLET PO SCH (21:05)
[2017-07-22] MEDS: ALBUTEROL/IPRATROPIUM 3 ML NEB RESP TX SCH ×3 (00:17→12:23)
[2017-07-22] MEDS: PIPERACILLIN/TAZOBACTAM 3,375 MG in SODIUM CHLORIDE 0.9% 100 ML IV SCH ×2 (01:39→09:40)
[2017-07-22] MEDS: LEVOTHYROXINE 75 MCG TABLET PO SCH (06:17)
[2017-07-22] MEDS: POTASSIUM CHLORIDE 20 MEQ TABLET PO PRN ×2 (06:42→09:37)
[2017-07-22] MEDS: DIGOXIN 0.125 MG TABLET PO SCH (09:37)
[2017-07-22] MEDS: INSULIN ASPART PROTAMINE/ASPART 70/30 100 UNIT/ML SUBCUT SCH (09:38)
[2017-07-22] MEDS: PANTOPRAZOLE 40 MG TABLET PO SCH (09:38)
[2017-07-22] MEDS: FUROSEMIDE 40 MG TABLET PO SCH (09:38)
[2017-07-22] MEDS: INSULIN LISPRO 100 UNIT/ML SUBCUT SCH ×2 (09:38→13:09)
[2017-07-22] MEDS: RIVAROXABAN 15 MG TABLET PO SCH (09:38)
[2017-07-22] MEDS: CARVEDILOL 25 MG TABLET PO SCH (09:38)
[2017-07-22] MEDS: methylPREDNISolone SOD SUC 40 MG/1 ML VIAL IV SCH (09:38)
[2017-07-22] MEDS: BUDESONIDE/FORMOTEROL 160-4.5 INHALER 6 GM INH SCH (09:44)
[2017-07-22 12:39] VITALS: BP 124/71
== END 2017-07-22 14:15 | disposition swing bed (61) | DRG 190 ==
LOC: N.ED 18:55 → N.EDINP 23:20 → N.TELEN 07-15 15:29
PROVIDERS: ADMIT Internal Medicine; ATTEND Internal Medicine

== ENCOUNTER 2017-09-04 18:13 | Inpatient (IN) ==
[2017-09-04] MEDS ORDERED: ALBUTEROL/IPRATROPIUM 3 ML NEB RESP TX STA (18:26)
[2017-09-04] MEDS ORDERED: DEXTROSE 50% 25 GM/50 ML SYRINGE IV ONE ×2 (18:26→19:52)
[2017-09-04] MEDS ORDERED: DEXTROSE 50% 25 GM/50 ML VIAL IV STA ×2 (18:27→19:54)
[2017-09-04 18:38] LABS: Basophils # 0.1 10*3/uL (0.0-0.2); Basophils % 0.6 % (0.0-0.8); Eosinophils # 0.1 10*3/uL (0.0-0.87); Eosinophils % 0.5 % (0.00-10.9); Hematocrit 41.7 VOL% (35.7-47.0); Hemoglobin 13.5 GM/DL (12.0-16.0); Immature Granulocytes % 0.9 %; Immature Granulocytes Absolute 0.09 #; Lymphocytes # 3.5 10*3/uL (1.4-4.0); Lymphocytes % 35.2 % (21.3-54.2); Mean Corpuscular HGB Conc 32.4 GM/DL (32-36); Mean Corpuscular Hemoglobin 30 PG (27-34); Mean Corpuscular Volume 92.9 FL (87-102); Mean Platelet Volume 9.6 FL (9.6-12.0); Monocytes # 0.7 10*3/uL (0.11-0.8); Monocytes % 6.9 % (1.7-12.7); Neutrophils # 5.6 10*3/uL (1.4-7.4); Neutrophils % 55.9 % (38.7-73.9); Platelet Count 343 T/CUMM (130-400); Red Blood Count 4.49 MC/CUMM (3.8-5.5); Red Cell Distribution Width 15.8 % (9.3-17.3)
[2017-09-04 19:04] LABS: Albumin 2.4 G/DL (3.4-5.0); Bilirubin,Total 0.5 MG/DL (0.2-1.0); Calcium 8.3 MG/DL (8.5-10.1); Magnesium 1.6 MG/DL (1.8-2.4); Potassium 3.1 MMOL/L (3.5-5.1); Total Protein 7.1 G/DL (6.4-8.3); Troponin I Only 0.048 NG/ML (0.00-0.045)
[2017-09-04] MEDS: ALBUTEROL 2.5 MG/3 ML NEB RESP TX SCH ×3 (19:05→19:35)
[2017-09-04 19:15] LABS: Lymphocytes 27 % (20-55); Segmented Neutrophils 65 % (50-85); Total Cells Counted 100
[2017-09-04] MEDS ORDERED: SODIUM CHLORIDE 0.9% 500 ML IV STA (19:55)
[2017-09-04] MEDS ORDERED: MAGNESIUM SULF RIDER 1 GM in PREMIX 1 EACH IV ONE (22:41)
[2017-09-04] MEDS ORDERED: CALCIUM GLUCONATE 1,000 MG in SODIUM CHLORIDE 0.9% 100 ML IV ONE (22:41)
[2017-09-04] MEDS ORDERED: MORPHINE 2 MG/1 ML SYRINGE IV PRN (22:41)
[2017-09-04] MEDS ORDERED: ONDANSETRON 4 MG/2 ML VIAL IV PRN (22:41)
[2017-09-04] MEDS ORDERED: POTASSIUM CHLORIDE 20 MEQ TABLET PO ONE (22:41)
[2017-09-04] MEDS ORDERED: ALBUTEROL 2.5 MG/3 ML NEB RESP TX PRN (22:41)
[2017-09-04] MEDS ORDERED: MAGNESIUM SULF RIDER 50 ML IV ONE (22:42)
[2017-09-04] MEDS ORDERED: ALBUTEROL/IPRATROPIUM 3 ML NEB RESP TX PRN (22:50)
[2017-09-04] MEDS ORDERED: methylPREDNISolone SOD SUC 125 MG/2 ML VIAL IV ONE (22:51)
[2017-09-04 22:59] LABS: Apearance,Urine CLEAR (Clear); Bilirubin,Urine Negative (Negative); Blood, Urine Negative (Negative); Glucose,Urine (UA) 50 mg/dL (Negative); Hyaline Casts,Urine 3 /LPF (0-3); Ketones,Urine Negative (Negative); Nitrite,Urine Negative (Negative); Protein,Urine Negative; RBC,Urine 1 /HPF (0-4); Urine Color Yellow (Yellow); Urine Specific Gravity 1.005 (1.001-1.035); Urine Urobilinogen < 2.0 EU/DL (0.2-1.0); WBC,Urine <1 /HPF (0-6)
[2017-09-04 23:01] LABS: Barbiturates Screen,Urine Negative (Negative); Benzodiazepines Screen,Urine Negative (Negative); Cannabinoid Screen,Urine Negative (Negative); Opiate Screen,Urine Negative (Negative); Phencyclidine Screen,Urine Negative (Negative)
[2017-09-05] MEDS: ALBUTEROL/IPRATROPIUM 3 ML NEB RESP TX SCH ×6 (00:14→20:24)
[2017-09-05 04:55] LABS: Calcium 7.9 MG/DL (8.5-10.1); Magnesium 1.9 MG/DL (1.8-2.4); Osmolality,Calculated 281.7 MOS/KG (273-304)
[2017-09-05] MEDS: LEVOTHYROXINE 75 MCG TABLET PO SCH (05:54)
[2017-09-05] MEDS: methylPREDNISolone SOD SUC 40 MG/1 ML VIAL IV SCH ×2 (06:10→17:06)
[2017-09-05] MEDS: RIVAROXABAN 15 MG TABLET PO SCH (08:45)
[2017-09-05] MEDS: PANTOPRAZOLE 40 MG TABLET PO SCH (08:45)
[2017-09-05] MEDS: DOCUSATE SODIUM 100 MG CAPSULE PO SCH ×2 (08:45→21:04)
[2017-09-05] MEDS: BUDESONIDE/FORMOTEROL 160-4.5 INHALER 6 GM INH SCH (08:50)
[2017-09-05] MEDS: POTASSIUM CHLORIDE 20 MEQ TABLET PO SCH (09:36)
[2017-09-05] MEDS: INSULIN REGULAR 100 UNIT/ML SUBCUT SCH ×2 (16:33→21:04)
[2017-09-05] MEDS: INSULIN ASPART PROTAMINE/ASPART 70/30 100 UNIT/ML SUBCUT SCH (21:07)
[2017-09-06] MEDS: ALBUTEROL/IPRATROPIUM 3 ML NEB RESP TX SCH ×6 (00:11→20:59)
[2017-09-06] MEDS: methylPREDNISolone SOD SUC 40 MG/1 ML VIAL IV SCH ×4 (01:01→23:58)
[2017-09-06 04:59] LABS: Basophils % 0.1 % (0.0-0.8); Hematocrit 32.9 VOL% (35.7-47.0); Hemoglobin 10.8 GM/DL (12.0-16.0); Immature Granulocytes % 0.9 %; Immature Granulocytes Absolute 0.08 #; Lymphocytes # 1.2 10*3/uL (1.4-4.0); Mean Corpuscular HGB Conc 32.8 GM/DL (32-36); Mean Corpuscular Hemoglobin 30 PG (27-34); Mean Corpuscular Volume 92.4 FL (87-102); Mean Platelet Volume 9.8 FL (9.6-12.0); Monocytes # 0.4 10*3/uL (0.11-0.8); Monocytes % 4.8 % (1.7-12.7); Neutrophils # 6.8 10*3/uL (1.4-7.4); Neutrophils % 80.2 % (38.7-73.9); Platelet Count 280 T/CUMM (130-400); Red Blood Count 3.56 MC/CUMM (3.8-5.5); Red Cell Distribution Width 15.5 % (9.3-17.3); White Blood Count 8.5 T/CUMM (4-12)
[2017-09-06 05:33] LABS: Osmolality,Calculated 278.8 MOS/KG (273-304); Potassium 3.2 MMOL/L (3.5-5.1)
[2017-09-06] MEDS: LEVOTHYROXINE 75 MCG TABLET PO SCH (06:08)
[2017-09-06] MEDS: INSULIN ASPART PROTAMINE/ASPART 70/30 100 UNIT/ML SUBCUT SCH ×2 (07:51→23:51)
[2017-09-06] MEDS: INSULIN REGULAR 100 UNIT/ML SUBCUT SCH ×4 (07:51→21:28)
[2017-09-06] MEDS: DOCUSATE SODIUM 100 MG CAPSULE PO SCH ×2 (09:26→21:29)
[2017-09-06] MEDS: PANTOPRAZOLE 40 MG TABLET PO SCH (09:26)
[2017-09-06] MEDS: RIVAROXABAN 15 MG TABLET PO SCH (09:27)
[2017-09-06] MEDS: POTASSIUM CHLORIDE 20 MEQ TABLET PO SCH (09:27)
[2017-09-06] MEDS: BUDESONIDE/FORMOTEROL 160-4.5 INHALER 6 GM INH SCH (10:15)
[2017-09-06] MEDS: POTASSIUM CHLORIDE 20 MEQ/15 ML UDCUP PO SCH (16:14)
[2017-09-07] MEDS: ALBUTEROL/IPRATROPIUM 3 ML NEB RESP TX SCH ×4 (00:40→11:00)
[2017-09-07] MEDS: LEVOTHYROXINE 75 MCG TABLET PO SCH (06:00)
[2017-09-07] MEDS: methylPREDNISolone SOD SUC 40 MG/1 ML VIAL IV SCH (06:00)
[2017-09-07] MEDS: INSULIN REGULAR 100 UNIT/ML SUBCUT SCH ×2 (07:50→11:48)
[2017-09-07] MEDS: RIVAROXABAN 15 MG TABLET PO SCH (08:30)
[2017-09-07] MEDS: DOCUSATE SODIUM 100 MG CAPSULE PO SCH (08:31)
[2017-09-07] MEDS: PANTOPRAZOLE 40 MG TABLET PO SCH (08:31)
[2017-09-07] MEDS: POTASSIUM CHLORIDE 20 MEQ/15 ML UDCUP PO SCH (08:31)
[2017-09-07] MEDS: BUDESONIDE/FORMOTEROL 160-4.5 INHALER 6 GM INH SCH (08:40)
[2017-09-07] MEDS: INSULIN ASPART PROTAMINE/ASPART 70/30 100 UNIT/ML SUBCUT SCH (08:40)
[2017-09-07] MEDS ORDERED: TUBERCULIN SKIN TEST 0.1 ML SYRINGE INTRADERM ONE (11:00)
[2017-09-07 11:37] VITALS: BP 124/74
[2017-09-07] MEDS ORDERED: ZINC OXIDE PASTE 113 GM TUBE TOP SCH (14:30)
== END 2017-09-07 14:35 | disposition home or self-care (01) | DRG 638 ==
LOC: EDUNIT# → EDBD → N.ED 18:13 → N.EDINP 21:25 → N.3E 22:06

== ENCOUNTER 2017-09-28 20:27 | Inpatient (IN) ==
[2017-09-28] MEDS ORDERED: DILTIAZEM 50 MG/10 ML VIAL IV STA ×2 (21:13→22:15)
[2017-09-28] MEDS ORDERED: ALBUTEROL NEB SOLN 5 MG/ML 20 ML/BOTTLE CONT NEB STA (21:14)
[2017-09-28] MEDS ORDERED: ONDANSETRON 4 MG/2 ML VIAL IV STA (21:23)
[2017-09-28] MEDS ORDERED: SODIUM CHLORIDE 0.9% 500 ML IV STA (21:23)
[2017-09-28] MEDS ORDERED: FUROSEMIDE 100 MG/10 ML VIAL IV STA (21:23)
[2017-09-28 21:33] LABS: Basophils % 0.4 % (0.0-0.8); Eosinophils # 0.1 10*3/uL (0.0-0.87); Eosinophils % 0.9 % (0.00-10.9); Hematocrit 33.3 VOL% (35.7-47.0); Hemoglobin 10.7 GM/DL (12.0-16.0); Immature Granulocytes % 0.7 %; Immature Granulocytes Absolute 0.05 #; Lymphocytes # 1.8 10*3/uL (1.4-4.0); Mean Corpuscular HGB Conc 32.1 GM/DL (32-36); Mean Corpuscular Hemoglobin 31 PG (27-34); Mean Corpuscular Volume 96.2 FL (87-102); Mean Platelet Volume 10.5 FL (9.6-12.0); Monocytes # 0.5 10*3/uL (0.11-0.8); NRBC # 0.28 10*3/uL; Platelet Count 255 T/CUMM (130-400); Red Blood Count 3.46 MC/CUMM (3.8-5.5); Red Cell Distribution Width 19.2 % (9.3-17.3); White Blood Count 7.5 T/CUMM (4-12)
[2017-09-28 21:45] LABS: INR 2.2
[2017-09-28 21:51] LABS: PT Patient Result 22.8 SECS
[2017-09-28 22:02] LABS: Albumin 2.1 G/DL (3.4-5.0); Bilirubin,Total 0.7 MG/DL (0.2-1.0); Calcium 8.3 MG/DL (8.5-10.1); Osmolality,Calculated 289.4 MOS/KG (273-304); Potassium 5.2 MMOL/L (3.5-5.1); Total Protein 6.2 G/DL (6.4-8.3); Troponin I Only 0.034 NG/ML (0.00-0.045)
[2017-09-28] MEDS ORDERED: MAGNESIUM SULF RIDER 2 GM in PREMIX 1 EACH IV STA (22:15)
[2017-09-28] MEDS ORDERED: ONDANSETRON 4 MG/2 ML VIAL ONE (22:23)
[2017-09-28] MEDS ORDERED: FUROSEMIDE 20 MG/2 ML VIAL ONE (22:23)
[2017-09-28] MEDS ORDERED: MAGNESIUM SULF RIDER 50 ML IV ONE (22:23)
[2017-09-28 23:02] LABS: Apearance,Urine Slightly Hazy (Clear); Bilirubin,Urine Negative (Negative); Blood, Urine Small mg/dL (Negative); Glucose,Urine (UA) Negative (Negative); Hyaline Casts,Urine 53 /LPF (0-3); Ketones,Urine Negative (Negative); Mucus,Urine Occasional /LPF (Occasional); Nitrite,Urine Negative (Negative); Protein,Urine 30 MG/DL; RBC,Urine 4 /HPF (0-4); Urine Color Yellow (Yellow); Urine Specific Gravity 1.011 (1.001-1.035); Urine Urobilinogen < 2.0 EU/DL (0.2-1.0); WBC,Urine 10 /HPF (0-6)
[2017-09-28] MEDS ORDERED: SODIUM BICARBONATE 650 MG TABLET PO ONE (23:45)
[2017-09-28] MEDS ORDERED: GLUCAGON 1 MG VIAL IM PRN (23:50)
[2017-09-28] MEDS ORDERED: DEXTROSE 50% 25 GM/50 ML VIAL IV PRN (23:50)
[2017-09-29] MEDS: IPRATROPIUM 500 MCG/2.5 ML NEB RESP TX SCH ×2 (01:23→07:10)
[2017-09-29 04:57] LABS: Basophils % 0.4 % (0.0-0.8); Eosinophils # 0.1 10*3/uL (0.0-0.87); Eosinophils % 1.3 % (0.00-10.9); Hematocrit 32.3 VOL% (35.7-47.0); Hemoglobin 10.5 GM/DL (12.0-16.0); Immature Granulocytes % 0.4 %; Immature Granulocytes Absolute 0.03 #; Lymphocytes # 1.7 10*3/uL (1.4-4.0); Lymphocytes % 23.8 % (21.3-54.2); Mean Corpuscular HGB Conc 32.5 GM/DL (32-36); Mean Corpuscular Hemoglobin 31 PG (27-34); Mean Corpuscular Volume 96.7 FL (87-102); Mean Platelet Volume 10.7 FL (9.6-12.0); Monocytes # 0.6 10*3/uL (0.11-0.8); Monocytes % 8.3 % (1.7-12.7); NRBC # 0.19 10*3/uL; Neutrophils # 4.7 10*3/uL (1.4-7.4); Neutrophils % 65.8 % (38.7-73.9); Platelet Count 253 T/CUMM (130-400); Red Blood Count 3.34 MC/CUMM (3.8-5.5); Red Cell Distribution Width 19.2 % (9.3-17.3); White Blood Count 7.1 T/CUMM (4-12)
[2017-09-29 05:55] LABS: Calcium 8.5 MG/DL (8.5-10.1); Osmolality,Calculated 287.4 MOS/KG (273-304); Potassium 4.7 MMOL/L (3.5-5.1); Thyroid Stimulating Hormone 4.39 uIU/ml (0.358-3.74)
[2017-09-29] MEDS: LEVOTHYROXINE 75 MCG TABLET PO SCH (06:38)
[2017-09-29] MEDS: INSULIN LISPRO 100 UNIT/ML SUBCUT SCH ×4 (08:01→22:45)
[2017-09-29] MEDS ORDERED: IPRATROPIUM 500 MCG/2.5 ML NEB RESP TX PRN (08:32)
[2017-09-29] MEDS ORDERED: PANTOPRAZOLE 40 MG TABLET PO SCH (09:00)
[2017-09-29] MEDS ORDERED: AMIODARONE INJ 450 MG in DEXTROSE 5% 241 ML IV SCH ×2 (09:00→10:00)
[2017-09-29] MEDS: INSULIN ASPART PROTAMINE/ASPART 70/30 100 UNIT/ML SUBCUT SCH ×2 (09:00→22:45)
[2017-09-29] MEDS ORDERED: BUDESONIDE/FORMOTEROL 160-4.5 INHALER 6 GM INH SCH (09:00)
[2017-09-29] MEDS ORDERED: PANTOPRAZOLE 40 MG TABLET PO ONE (09:29)
[2017-09-29] MEDS: BUDESONIDE/FORMOTEROL 160-4.5 INHALER 6 GM INH SCH ×2 (09:52→22:44)
[2017-09-29] MEDS ORDERED: POTASSIUM CHLORIDE 20 MEQ PACK ONE (09:55)
[2017-09-29] MEDS: POTASSIUM CHLORIDE 20 MEQ PACK PO SCH ×2 (09:57→22:45)
[2017-09-29] MEDS ORDERED: CARVEDILOL 3.125 MG TABLET ONE (10:28)
[2017-09-29] MEDS ORDERED: RIVAROXABAN 15 MG TABLET ONE (10:28)
[2017-09-29] MEDS: CARVEDILOL 3.125 MG TABLET PO SCH ×2 (10:32→22:42)
[2017-09-29] MEDS: RIVAROXABAN 15 MG TABLET PO SCH (10:32)
[2017-09-29] MEDS: ALBUTEROL/IPRATROPIUM 3 ML NEB RESP TX SCH ×3 (10:44→19:04)
[2017-09-29] MEDS ORDERED: PNEUMOCOCCAL VACCINE (13 VALENT) 0.5 ML SYRINGE IM ONE (12:11)
[2017-09-29] MEDS ORDERED: INFLUENZA VIRUS VACCINE 0.5 ML SYRINGE IM ONE (12:11)
[2017-09-29] MEDS ORDERED: FUROSEMIDE 40 MG/4 ML VIAL IV SCH (16:00)
[2017-09-29] MEDS: ALBUMIN 25% 12.5 GM in PREMIX 1 EACH IV SCH (16:19)
[2017-09-29] MEDS: FUROSEMIDE 40 MG/4 ML VIAL IV SCH (17:12)
[2017-09-29] MEDS: AMIODARONE INJ 450 MG in DEXTROSE 5% 241 ML IV SCH (18:19)
[2017-09-29] MEDS: ATORVASTATIN 20 MG TABLET PO SCH (22:42)
[2017-09-30] MEDS: ALBUTEROL 2.5 MG/3 ML NEB RESP TX PRN (01:48)
[2017-09-30] MEDS: ALBUMIN 25% 12.5 GM in PREMIX 1 EACH IV SCH ×2 (04:10→16:45)
[2017-09-30 05:31] LABS: Basophils % 0.3 % (0.0-0.8); Eosinophils # 0.1 10*3/uL (0.0-0.87); Eosinophils % 0.8 % (0.00-10.9); Hematocrit 31.2 VOL% (35.7-47.0); Immature Granulocytes % 0.3 %; Immature Granulocytes Absolute 0.02 #; Lymphocytes # 1.4 10*3/uL (1.4-4.0); Lymphocytes % 22.4 % (21.3-54.2); Mean Corpuscular HGB Conc 32.1 GM/DL (32-36); Mean Corpuscular Hemoglobin 31 PG (27-34); Mean Corpuscular Volume 96.9 FL (87-102); Mean Platelet Volume 10.6 FL (9.6-12.0); Monocytes # 0.6 10*3/uL (0.11-0.8); Monocytes % 9.1 % (1.7-12.7); NRBC # 0.43 10*3/uL; Neutrophils # 4.3 10*3/uL (1.4-7.4); Neutrophils % 67.1 % (38.7-73.9); Platelet Count 252 T/CUMM (130-400); Red Blood Count 3.22 MC/CUMM (3.8-5.5); Red Cell Distribution Width 19.8 % (9.3-17.3); White Blood Count 6.4 T/CUMM (4-12)
[2017-09-30 05:58] LABS: Calcium 8.4 MG/DL (8.5-10.1); Osmolality,Calculated 285.4 MOS/KG (273-304); Potassium 5.5 MMOL/L (3.5-5.1)
[2017-09-30 06:05] LABS: Albumin 2.5 G/DL (3.4-5.0); Bilirubin,Total 1.1 MG/DL (0.2-1.0); Calcium 8.1 MG/DL (8.5-10.1); Osmolality,Calculated 282.5 MOS/KG (273-304); Potassium 5.4 MMOL/L (3.5-5.1); Total Protein 5.6 G/DL (6.4-8.3)
[2017-09-30] MEDS ORDERED: LEVOTHYROXINE 75 MCG TABLET PO SCH (06:30)
[2017-09-30] MEDS: LEVOTHYROXINE 75 MCG TABLET PO SCH (06:47)
[2017-09-30] MEDS: ALBUTEROL/IPRATROPIUM 3 ML NEB RESP TX SCH ×5 (07:44→19:08)
[2017-09-30] MEDS: INSULIN LISPRO 100 UNIT/ML SUBCUT SCH ×4 (07:56→21:20)
[2017-09-30] MEDS: PANTOPRAZOLE 40 MG TABLET PO SCH (08:52)
[2017-09-30] MEDS: CARVEDILOL 3.125 MG TABLET PO SCH ×2 (08:52→20:24)
[2017-09-30] MEDS: POTASSIUM CHLORIDE 20 MEQ PACK PO SCH ×2 (08:52→09:00)
[2017-09-30] MEDS: RIVAROXABAN 15 MG TABLET PO SCH (08:52)
[2017-09-30] MEDS: INSULIN ASPART PROTAMINE/ASPART 70/30 100 UNIT/ML SUBCUT SCH ×2 (08:53→21:20)
[2017-09-30] MEDS: BUDESONIDE/FORMOTEROL 160-4.5 INHALER 6 GM INH SCH ×2 (10:20→20:24)
[2017-09-30] MEDS: FUROSEMIDE 40 MG/4 ML VIAL IV SCH ×2 (13:59→16:46)
[2017-09-30] MEDS: AMIODARONE INJ 450 MG in DEXTROSE 5% 241 ML IV SCH ×2 (14:00)
[2017-09-30] MEDS: AMIODARONE 200 MG TABLET PO SCH (20:24)
[2017-09-30] MEDS: ATORVASTATIN 20 MG TABLET PO SCH (20:24)
[2017-10-01] MEDS: ALBUMIN 25% 12.5 GM in PREMIX 1 EACH IV SCH ×2 (05:47→15:09)
[2017-10-01 06:11] LABS: Basophils % 0.3 % (0.0-0.8); Eosinophils # 0.1 10*3/uL (0.0-0.87); Eosinophils % 0.8 % (0.00-10.9); Hematocrit 31.3 VOL% (35.7-47.0); Hemoglobin 10.2 GM/DL (12.0-16.0); Immature Granulocytes % 0.5 %; Immature Granulocytes Absolute 0.04 #; Lymphocytes # 1.7 10*3/uL (1.4-4.0); Lymphocytes % 21.5 % (21.3-54.2); Mean Corpuscular HGB Conc 32.6 GM/DL (32-36); Mean Corpuscular Hemoglobin 31 PG (27-34); Mean Platelet Volume 10.5 FL (9.6-12.0); Monocytes # 0.6 10*3/uL (0.11-0.8); Monocytes % 8.1 % (1.7-12.7); Neutrophils # 5.3 10*3/uL (1.4-7.4); Neutrophils % 68.8 % (38.7-73.9); Platelet Count 223 T/CUMM (130-400); Red Blood Count 3.26 MC/CUMM (3.8-5.5); Red Cell Distribution Width 19.9 % (9.3-17.3); White Blood Count 7.7 T/CUMM (4-12)
[2017-10-01 06:46] LABS: Albumin 2.6 G/DL (3.4-5.0); Bilirubin,Total 1.9 MG/DL (0.2-1.0); Calcium 8.5 MG/DL (8.5-10.1); Osmolality,Calculated 281.8 MOS/KG (273-304); Potassium 5.8 MMOL/L (3.5-5.1); Total Protein 5.5 G/DL (6.4-8.3)
[2017-10-01 06:46] LABS: Calcium 8.3 MG/DL (8.5-10.1); Osmolality,Calculated 283.7 MOS/KG (273-304); Potassium 5.5 MMOL/L (3.5-5.1)
[2017-10-01] MEDS: INSULIN LISPRO 100 UNIT/ML SUBCUT SCH ×4 (07:46→22:31)
[2017-10-01] MEDS: AMIODARONE 200 MG TABLET PO SCH ×2 (09:01→22:31)
[2017-10-01] MEDS: LEVOTHYROXINE 75 MCG TABLET PO SCH (09:01)
[2017-10-01] MEDS: PANTOPRAZOLE 40 MG TABLET PO SCH (09:01)
[2017-10-01] MEDS: CARVEDILOL 3.125 MG TABLET PO SCH ×2 (09:01→22:31)
[2017-10-01] MEDS: INSULIN ASPART PROTAMINE/ASPART 70/30 100 UNIT/ML SUBCUT SCH ×2 (09:01→22:30)
[2017-10-01] MEDS: RIVAROXABAN 15 MG TABLET PO SCH (09:01)
[2017-10-01] MEDS: FUROSEMIDE 40 MG/4 ML VIAL IV SCH ×2 (09:01→15:35)
[2017-10-01] MEDS: BUDESONIDE/FORMOTEROL 160-4.5 INHALER 6 GM INH SCH ×2 (09:05→22:32)
[2017-10-01] MEDS: ALBUTEROL/IPRATROPIUM 3 ML NEB RESP TX SCH ×4 (10:56→19:13)
[2017-10-01] MEDS: ATORVASTATIN 20 MG TABLET PO SCH (22:31)
[2017-10-02] MEDS: ALBUTEROL 2.5 MG/3 ML NEB RESP TX PRN (01:23)
[2017-10-02] MEDS: ALBUMIN 25% 12.5 GM in PREMIX 1 EACH IV SCH (03:00)
[2017-10-02 05:34] LABS: Basophils % 0.3 % (0.0-0.8); Eosinophils # 0.1 10*3/uL (0.0-0.87); Eosinophils % 1.8 % (0.00-10.9); Hematocrit 28.2 VOL% (35.7-47.0); Hemoglobin 9.3 GM/DL (12.0-16.0); Immature Granulocytes % 0.5 %; Immature Granulocytes Absolute 0.03 #; Lymphocytes # 1.4 10*3/uL (1.4-4.0); Mean Corpuscular Hemoglobin 31 PG (27-34); Mean Corpuscular Volume 95.3 FL (87-102); Mean Platelet Volume 10.4 FL (9.6-12.0); Monocytes # 0.6 10*3/uL (0.11-0.8); Monocytes % 10.4 % (1.7-12.7); NRBC # 0.11 10*3/uL; Neutrophils # 3.8 10*3/uL (1.4-7.4); Platelet Count 195 T/CUMM (130-400); Red Blood Count 2.96 MC/CUMM (3.8-5.5)
[2017-10-02 06:05] LABS: Calcium 8.3 MG/DL (8.5-10.1)
[2017-10-02] MEDS: LEVOTHYROXINE 75 MCG TABLET PO SCH (06:06)
[2017-10-02] MEDS ORDERED: MAGNESIUM SULF RIDER 4 GM in PREMIX 1 EACH IV PRN (07:23)
[2017-10-02] MEDS ORDERED: MAGNESIUM SULF RIDER 2 GM in PREMIX 1 EACH IV PRN (07:23)
[2017-10-02] MEDS: ALBUTEROL/IPRATROPIUM 3 ML NEB RESP TX SCH ×2 (08:56→11:45)
[2017-10-02] MEDS: RIVAROXABAN 15 MG TABLET PO SCH (09:03)
[2017-10-02] MEDS: CARVEDILOL 3.125 MG TABLET PO SCH (09:03)
[2017-10-02] MEDS: PANTOPRAZOLE 40 MG TABLET PO SCH (09:03)
[2017-10-02] MEDS: INSULIN LISPRO 100 UNIT/ML SUBCUT SCH ×2 (09:03→12:40)
[2017-10-02] MEDS: AMIODARONE 200 MG TABLET PO SCH (09:03)
[2017-10-02] MEDS: BUDESONIDE/FORMOTEROL 160-4.5 INHALER 6 GM INH SCH (09:03)
[2017-10-02] MEDS: INSULIN ASPART PROTAMINE/ASPART 70/30 100 UNIT/ML SUBCUT SCH (09:04)
[2017-10-02] MEDS: FUROSEMIDE 40 MG/4 ML VIAL IV SCH (09:04)
[2017-10-02] MEDS ORDERED: TUBERCULIN SKIN TEST 0.1 ML SYRINGE INTRADERM ONE (11:08)
[2017-10-02 12:12] VITALS: BP 98/54
== END 2017-10-02 13:14 | DRG 291 ==
LOC: EDBD → EDUNIT# → N.ED 20:27 → N.EDINP 23:44 → N.TELEN 09-29 11:34
PROVIDERS: ADMIT Family Medicine; ATTEND Family Medicine